=== PATIENT | male | born 1975 | race Caucasian/White ===

== ENCOUNTER 2018-11-19 17:59 | Emergency (ER) | payer MEDICAID, OTHER ==
[2018-11-19 18:30] VITALS: BP 124/81
[2018-11-19] MEDS ORDERED: HYDROcodone/ACETAMIN 5-325 MG* 1 TAB PO ONE (18:36)
--- NOTE | 2018-11-19 18:40 | UC ---
Back Pain HPI - HPI Summary HPI Summary: 43-year-old male comes in with a chief complaint of low back pain after falling. His at work today and is getting out of truck and he slipped and landed on his back. Pain in the low back midline that also goes across on the left and right side on the back. Denies any abdominal pain. Denies any radiation of pain down into the legs no weakness no numbness. Reports normal urination. Pain is worse with any kind of movement. He also has pain at rest. Took ibuprofen at 1:00 today and reports a did not help much at all. - History of Current Complaint Chief Complaint: UCBackPain Stated Complaint: LOWER BACK PAIN (W/C) Time Seen by Provider: 11/19/18 18:14 Pain Intensity: 8 - Allergies/Home Medications Allergies/Adverse Reactions: Allergies Allergy/AdvReac Type Severity Reaction Status Date / Time Penicillins Allergy Anaphylatic Verified 11/19/18 18:25 Shock PMH/Surg Hx/FS Hx/Imm Hx Previously Healthy: Yes - Surgical History Surgical History: None - Family History Known Family History: Positive: Non-Contributory - Social History Alcohol Use: Occasionally Substance Use Type: None Smoking Status (MU): Heavy Every Day Tobacco Smoker Amount Used/How Often: 3/4 PPD Review of Systems All Other Systems Reviewed And Are Negative: Yes Constitutional: Positive: Negative Skin: Positive: Negative Eyes: Positive: Negative ENT: Positive: Negative Respiratory: Positive: Negative Cardiovascular: Positive: Negative Gastrointestinal: Positive: Negative Genitourinary: Positive: Negative Motor: Positive: Negative Neurovascular: Positive: Negative Musculoskeletal: Positive: Other: - see hpi Neurological: Positive: Negative Psychological: Positive: Negative Is Patient Immunocompromised?: No Physical Exam Triage Information Reviewed: Yes Appearance: Well-Appearing, Well-Nourished, Pain Distress - mild with rom Vital Signs: Initial Vital Signs Temp 97.7 F 11/19/18 18:25 Pulse 66 11/19/18 18:25 Resp 16 11/19/18 18:25 BP 124/81 11/19/18 18:25 Pulse Ox 100 11/19/18 18:25 Vital Signs Reviewed: Yes Eye Exam: Normal Eyes: Positive: Conjunctiva Clear Neck: Positive: Supple Respiratory: Positive: Chest non-tender, Lungs clear, Normal breath sounds, No respiratory distress Abdomen Description: Positive: CVA Tenderness (R), CVA Tenderness (L) Musculoskeletal: Positive: Strength Intact, ROM Intact, Other: - Tender to palpation midline of the lumbar spine from approximately L2 to the sacrum. Also tender to the left and right of the midline. Neurological: Positive: Alert Psychological: Positive: Age Appropriate Behavior Skin Exam: Normal Back Pain Course/Dx - Course Course Of Treatment: I discussed the x-rays with the patient. I do not see any fractures radiologist reading is pending. The urine has no blood in it. Plan is ibuprofen as needed and Flexeril as needed. Out of work until November 24, 2018. Return without restrictions on that date. If the patient is unable to return at that time he will follow-up with occupational medicine doctor Chad. We discussed is any worsening of his condition he needs to get reevaluated again right away. - Differential Dx/Diagnosis Provider Diagnosis: Low back pain Discharge - Sign-Out/Discharge Documenting (check all that apply): Patient Departure All imaging exams completed and their final reports reviewed: No - Discharge Plan Condition: Stable Disposition: HOME Prescriptions: Cyclobenzaprine TAB* [Flexeril 10 MG TAB*] 10 mg PO TID PRN #15 tab MDD 3 PRN Reason: Pain - Moderate Patient Education Materials: Acute Low Back Pain (ED) Forms: *Work Release Referrals: Gilles Patton MD [Medical Doctor] - Additional Instructions: FOLLOW UP WITH DR PATTON, OCCUPATIONAL MEDICINE, IF NOT COMPLETELY IMPROVED. GET REEVALUATED SOONER IF WORSE OR ANY QUESTIONS OR CONCERNS. - Billing Disposition and Condition Condition: STABLE Disposition: Home
--- NOTE | 2018-11-20 07:28 | UC ---
- Progress Note Progress Note: Final radiologist reading for lumbar spine x-rays from November 19, 2018 comes back as no acute fracture. Provider interpretation same date is the same therefore there is no discrepancy. Course/Dx - Diagnoses Provider Diagnoses: Low back pain Discharge - Sign-Out/Discharge Documenting (check all that apply): Patient Departure All imaging exams completed and their final reports reviewed: Yes - Discharge Plan Condition: Stable Disposition: HOME Prescriptions: Cyclobenzaprine TAB* [Flexeril 10 MG TAB*] 10 mg PO TID PRN #15 tab MDD 3 PRN Reason: Pain - Moderate Patient Education Materials: Acute Low Back Pain (ED) Forms: *Work Release Referrals: Gilles Patton MD [Medical Doctor] - Additional Instructions: FOLLOW UP WITH DR PATTON, OCCUPATIONAL MEDICINE, IF NOT COMPLETELY IMPROVED. GET REEVALUATED SOONER IF WORSE OR ANY QUESTIONS OR CONCERNS. - Billing Disposition and Condition Condition: STABLE Disposition: Home
== END 2018-11-19 20:10 | disposition home or self-care (01) ==
LOC: UCCORT 17:59
DX: M54.5 Low back pain (principal); V68.4XXA Person boarding or alighting a heavy transport vehicle injured in noncollision transport accident, initial encounter; Y92.89 Other specified places as the place of occurrence of the external cause; Y99.0 Civilian activity done for income or pay
CPT/HCPCS: 72110; 81003; 99202; G0463

== ENCOUNTER 2019-06-26 17:23 | Emergency (ER) | payer BC ==
[2019-06-26 17:36] VITALS: BP 112/75
[2019-06-26 18:02] LABS: Influenza A Molecular Negative (Negative); Influenza B Molecular Negative (Negative)
--- NOTE | 2019-06-26 18:06 | UC ---
FLU HPI - HPI Summary HPI Summary: 43-year-old male with congestion, chills, possible fever. He's unsure whether get a flu shot in fall, he is a smoker. - History of Current Complaint Chief Complaint: UCGeneralIllness Stated Complaint: FLU LIKE SYMP Time Seen by Provider: 06/26/19 17:34 Hx Obtained From: Patient Onset/Duration: Gradual Onset Severity Currently: Mild Severity Initially: Mild Pain Intensity: 0 Associated Signs & Symptoms: Positive: Fever - Patient's unsure whether he's had a fever, Cough - Allergy/Home Medications Allergies/Adverse Reactions: Allergies Allergy/AdvReac Type Severity Reaction Status Date / Time Penicillins Allergy Anaphylatic Verified 06/26/19 17:36 Shock Home Medications: Home Medications NK [No Home Medications Reported] 06/26/19 [History Confirmed 06/26/19] PMH/Surg Hx/FS Hx/Imm Hx Previously Healthy: Yes - Surgical History Surgical History: Yes Surgery Procedure, Year, and Place: hernia repair - Family History Known Family History: Positive: Non-Contributory - Social History Occupation: Employed Full-time Lives: With Family Alcohol Use: Occasionally Substance Use Type: None Smoking Status (MU): Heavy Every Day Tobacco Smoker Amount Used/How Often: 1/2 - 3/4 PPD Review of Systems All Other Systems Reviewed And Are Negative: Yes Constitutional: Positive: Chills ENT: Positive: Nasal Discharge Respiratory: Positive: Cough Is Patient Immunocompromised?: No Physical Exam Triage Information Reviewed: Yes Appearance: Well-Appearing, No Pain Distress, Well-Nourished Vital Signs: Initial Vital Signs Temp 98.8 F 06/26/19 17:33 Pulse 83 06/26/19 17:33 Resp 17 06/26/19 17:33 BP 112/75 06/26/19 17:33 Pulse Ox 98 06/26/19 17:33 Vital Signs Reviewed: Yes Eyes: Positive: Conjunctiva Clear ENT: Positive: Pharynx normal, TMs normal, Uvula midline Neck: Positive: Supple, Nontender, No Lymphadenopathy Respiratory: Positive: Lungs clear, Normal breath sounds, No respiratory distress, No accessory muscle use Cardiovascular: Positive: RRR, No Murmur, Pulses Normal, Brisk Capillary Refill Musculoskeletal Exam: Normal Neurological Exam: Normal Psychological Exam: Normal Skin Exam: Normal Flu Course/Dx - Course Course Of Treatment: Rapid flu test: Negative Patient is comfortable here, nontoxic and does not appear ill. He was advised to stay home until he is feeling better and no longer has a fever... although he does not have a fever today. He is to follow-up with his primary care provider on Saturday or Saturday if no better or if worsening symptoms. - Differential Dx/Diagnosis Provider Diagnosis: URI (upper respiratory infection) Discharge ED - Sign-Out/Discharge Documenting (check all that apply): Patient Departure All imaging exams completed and their final reports reviewed: No Studies - Discharge Plan Condition: Good Disposition: HOME Patient Education Materials: Influenza (DC) Referrals: [facility] [Outside] No Primary Care Phys,NOPCP [Primary Care Provider] - Additional Instructions: Increase fluids, rest, Tylenol every 4 hours as needed for fever and may alternate with ibuprofen every 8 hours. Follow-up with your primary care provider or [facility] in 3 or 4 days if no improvement. - Billing Disposition and Condition Condition: GOOD Disposition: Home - Attestation Statements Provider Attestation: Chart has been reviewed. I did not see the patient but was available for consult. EK.
== END 2019-06-26 18:14 | disposition home or self-care (01) ==
LOC: UCCORT 17:23
DX: J06.9 Acute upper respiratory infection, unspecified (principal); F17.210 Nicotine dependence, cigarettes, uncomplicated; Z88.0 Allergy status to penicillin
CPT/HCPCS: 99211; G0463